=== PATIENT | male | born 1990 | race African-American/Black ===

== ENCOUNTER 2018-07-07 09:14 | Emergency (ER) | payer OTHER | END 2018-07-07 09:50 | disposition home or self-care (01) | LOC: M ED 09:14 | DX: B36.0 Pityriasis versicolor (principal) | CPT/HCPCS: 99282 ==

== ENCOUNTER 2018-10-22 12:46 | Emergency (ER) | payer OTHER ==
[~2018-10-22] VITALS: Ht 185.4 cm; Wt 100.0 kg
[~2018-10-22 12:46] MED LIST: KETO2CR TOP
[2018-10-22 12:47] VITALS: BP 127/61
[2018-10-22] MEDS ORDERED: FLUORESCEIN OPHTH 1 MG STRIP OD ONE (13:15)
[2018-10-22] MEDS ORDERED: PROPARACAINE 0.5% OPHTH SOL 15ML OD ONE (13:15)
[2018-10-22] MEDS ORDERED: ERYTHROMYCIN OPHTH OINT OD ONE (13:30)
[2018-10-22] MEDS ORDERED: OCUF0.25 OD (13:31)
== END 2018-10-22 13:40 | disposition home or self-care (01) ==
LOC: M ED 12:46
DX: S05.01XA Injury of conjunctiva and corneal abrasion without foreign body, right eye, initial encounter (principal); X58.XXXA Exposure to other specified factors, initial encounter; Y92.89 Other specified places as the place of occurrence of the external cause; H11.31 Conjunctival hemorrhage, right eye